=== PATIENT | male | born 2000 | race Caucasian/White ===

== ENCOUNTER 2021-07-03 13:12 | Emergency (ER) | payer BC ==
[~2021-07-03] VITALS: Ht 172.7 cm; Wt 68.2 kg
[2021-07-03 13:19] VITALS: BP 136/94
[2021-07-03] MEDS ORDERED: ibuprofen tablet 400 MG TABLET PO ONE (14:40)
== END 2021-07-03 15:13 | disposition home or self-care (01) ==
LOC: ER 13:13
DX: M25.532 Pain in left wrist (principal)
CPT/HCPCS: 73110; 99283